=== PATIENT | female | born 1965 | race Two or more races ===

== ENCOUNTER 2017-06-08 15:21 | Emergency (ER) | payer MEDICAID ==
[2017-06-08] MEDS ORDERED: LIDOCAINE 1% INJ (10 MG/ML) 10 ML MDV INJ ONE (15:41)
--- NOTE | 2017-06-08 15:58 | ER Document Report ---
ED Head/Face/Scalp Injury - General Chief Complaint: Head Injury Stated Complaint: HEAD LACERATION Time Seen by Provider: 06/08/17 15:33 Notes: The patient is a 52-year-old female, past medical history seizures, presents after she had two brief seizures today. During her last one, she fell and hit the back of her head. She is also complaining of upper lip pain where she thinks she bit it. Patient is taking her Tegretol and gabapentin as prescribed , but her Tegretol was decreased from 3 times a day to 2 times a day because it was making her too tired. Patient denies blurry vision, neck pain, numbness, tingling, chest pain, shortness of breath, fevers, neck stiffness or ataxia. TRAVEL OUTSIDE OF THE [place] IN LAST 30 DAYS: No - Related Data Allergies/Adverse Reactions: No Known Allergies Allergy (Unverified 07/24/16 14:04) Past Medical History - General Information source: Patient - Social History Smoking Status: Unknown if Ever Smoked Family History: Reviewed & Not Pertinent Neurological Medical History: Reports: Hx Seizures Musculoskeltal Medical History: Reports Hx Arthritis - Immunizations Hx Diphtheria, Pertussis, Tetanus Vaccination: Yes Review of Systems - Review of Systems Notes: REVIEW OF SYSTEMS: CONSTITUTIONAL: -fevers, -chills EENT: -eye pain, -difficulty swallowing, -nasal congestion CARDIOVASCULAR:-chest pain, -syncope. RESPIRATORY: -cough, -SOB GASTROINTESTINAL: -abdominal pain, - nausea, -vomiting, -diarrhea GENITOURINARY: -dysuria, -hematuria MUSCULOSKELETAL: -back pain, -neck pain SKIN: +head laceration HEMATOLOGIC: -easy bruising or bleeding. LYMPHATIC: -swollen, enlarged glands. NEUROLOGICAL: -altered mental status or loss of consciousness, -headache, - neurologic symptoms PSYCHIATRIC: -anxiety, -depression. ALL OTHER SYSTEMS REVIEWED AND NEGATIVE. Physical Exam - Vital signs Vitals: Temp Pulse Resp BP Pulse Ox 97.2 F 80 16 120/74 98 06/08/17 15:41 06/08/17 15:41 06/08/17 15:41 06/08/17 15:41 06/08/17 15:41 - Notes Notes: PHYSICAL EXAMINATION: GENERAL: Well-appearing, well-nourished and in no acute distress. HEAD: 3 cm linear posterior scalp laceration, normocephalic. EYES: Pupils equal round and reactive to light, extraocular movements intact, sclera anicteric, conjunctiva are normal. ENT: mild superficial abrasion of inner upper lip, nares patent, oropharynx clear without exudates. Moist mucous membranes. NECK: Normal range of motion, supple without lymphadenopathy LUNGS: Breath sounds clear to auscultation bilaterally and equal. No wheezes rales or rhonchi. HEART: Regular rate and rhythm without murmurs ABDOMEN: Soft, nontender, normoactive bowel sounds. No guarding, no rebound. No masses appreciated. EXTREMITIES: Normal range of motion, no pitting or edema. No cyanosis. NEUROLOGICAL: Cranial nerves grossly intact. Normal speech, normal gait. Normal sensory and motor exams. PSYCH: Normal mood, normal affect. SKIN: 3 cm linear laceration over left posterior parietal scalp Course - Re-evaluation Re-evalutation: Patient has no acute intracranial bleeds. Her scalp laceration was repaired with myra. Accu-Chek is normal. Instructed patient to follow-up with her primary care physician to discuss management of her seizure medications. Given strict return precautions and she understands. - Vital Signs Vital signs: Temp Pulse Resp BP Pulse Ox 97.2 F 81 16 102/87 H 98 06/08/17 15:41 06/08/17 17:54 06/08/17 17:54 06/08/17 17:54 06/08/17 17:54 - Diagnostic Test Radiology reviewed: Image reviewed, Reports reviewed Radiology results interpreted by me: CT Head: Procedures - Laceration/Wound Repair Posterior Head Wound length (cm): 3 Wound's Depth, Shape: Linear Laceration pre-procedure: Sterile PPE donned Anesthetic type: 1% Lidocaine Volume Anesthetic (mLs): 3 Wound explored: Clean Irrigated w/ Saline (mLs): 1,000 Wound Repaired With: Myra Number of Sutures: 3 Layer Closure?: No Post-procedure NV exam normal: No Complications: No Discharge - Discharge Clinical Impression: Seizure Scalp laceration Qualifiers: Encounter type: initial encounter Qualified Code(s): S01.01XA - Laceration without foreign body of scalp, initial encounter Head injury Qualifiers: Encounter type: initial encounter Qualified Code(s): S09.90XA - Unspecified injury of head, initial encounter Condition: Stable Disposition: HOME, SELF-CARE Additional Instructions: LACERATION CARE: Your laceration has been stapled to keep the skin edges aligned during healing. The time of suture removal depends on the nature and location of your cut. Please follow the care instructions the doctor has outlined for you and return for further care, according to the schedule you've been given. Keep the wound and dressing clean. Unless you were told otherwise, you may shower daily, blotting the wound dry with a clean, unused towel. At other times, If the dressing gets wet or blood soaked, remove it and blot the wound dry, then reapply a new dressing. Unless you were instructed otherwise, dressings should be changed at least daily. If any signs of infection occur (swelling, redness, drainage, increasing tenderness, red streaks, tender lumps in the armpit or groin above the laceration, or fever), see the doctor immediately. SOAP CLEANSING: Gently wash the wound daily using a mild soap (like Ivory, Phisoderm, Neutrogena). Use warm water, rubbing gently until all debris, ooze, and crusting have been washed from the wound. Allow to dry briefly (about 10 minutes) after cleaning. Repeat this cleansing at least three times a day for the first two days and then once or twice a day. TETANUS IMMUNIZATION GIVEN: You have been given an immunization against tetanus. Please record this in your records. In general, a booster is needed only once every 10 years. The tetanus shot protects against tetanus or "lockjaw," which is a complication of certain wound infections (the tetanus shot cannot protect against the actual infection). The immunization site may become warm and red due to local reaction. If this occurs, apply warm compresses and take aspirin or ibuprofen to reduce inflammation and discomfort. Return for evaluation if the reaction becomes severe. FOLLOW-UP CARE: Please return in days for an infection check and dressing change. Your sutures should be removed in 7 days. To facilitate a timely removal of your sutures, you may return to the Emergency Department at [facility]. You do not need to call for an appointment, but the best time to come in for suture removal is early in the morning. If you have been referred to another physician for follow-up care, call that physicians office for an appointment as you were instructed. If you experience a significant change in your laceration, or if you are concerned there may be an infection (swelling, redness, drainage, increasing tenderness, red streaks, tender lumps in the armpit or groin above the laceration, or fever) , return to the Emergency Department immediately re-evaluation. Seizure, Known Epileptic You have had a seizure. Seizures may "break through" in an epileptic due to stress of infection or injury, a change in blood chemistry, or drug and alcohol use. Another common cause is failure to take medication as prescribed. Your doctor has evaluated your situation for the likely cause of this seizure. It is important that you follow his advice concerning any medication changes and follow-up care. Further testing of anti-seizure medication levels in your blood may be necessary. If you have a public transit trolley driver's license, it's important that you DO NOT DRIVE until given permission by your physician. This seizure must be reported to the public transit trolley driver 's license bureau. Call the doctor or return if seizures recur, or if new or unusual symptoms arise -- such as severe headache, confusion, excessive sleepiness, local weakness or numbness, neck stiffness, or fever. Referrals: PAOLA GORE MD [Primary Care Provider] - Follow up as needed
--- NOTE | 2017-06-08 16:59 | RADIOLOGY REPORT (SQ) ---
EXAM DESCRIPTION: CT HEAD WITHOUT COMPLETED DATE/TIME: 06/08/2017 4:23 pm REASON FOR STUDY: head injury COMPARISON: None. TECHNIQUE: Axial images acquired through the brain without intravenous contrast. Images reviewed wi th bone, brain and subdural windows. Images stored on PACS. All CT scanners at this facility use dose modulation, iterative reconstruction, and/or weight based d osing when appropriate to reduce radiation dose to as low as reasonably achievable (ALARA). [facility]: Dose Right [facility]: CareDose [facility]: Dose Right [facility]: Teradose 4D [facility]: Smart Jostle RADIATION DOSE: Up-to-date CT equipment and radiation dose reduction techniques were employed. CTDIv ol: 64.6 mGy. DLP: 1163 mGy-cm. mGy. LIMITATIONS: None. FINDINGS: VENTRICLES: Normal size and contour. CEREBRUM: No masses. No hemorrhage. No midline shift. Normal pratt/white matter differentiation. N o evidence for acute infarction. CEREBELLUM: No masses. No hemorrhage. No alteration of density. No evidence for acute infarction. EXTRAAXIAL SPACES: No fluid collections. No masses. ORBITS AND GLOBE: No intra- or extraconal masses. Normal contour of globe without masses. CALVARIUM: No fracture. PARANASAL SINUSES: No fluid or mucosal thickening. SOFT TISSUES: No mass or hematoma. OTHER: No other significant finding. IMPRESSION: NORMAL BRAIN CT WITHOUT CONTRAST. TECHNICAL DOCUMENTATION: JOB ID: [id number] Quality ID # [id number]: Final reports with documentation of one or more dose reduction techniques (e.g., Au tomated exposure control, adjustment of the mA and/or kV according to patient size, use of iterative reconstruction technique) 2010 [employer]- All Rights Reserved
[2017-06-08] MEDS ORDERED: LIDOCAINE 1% INJ-PF (10 MG/ML) 30 ML SDV ONE (17:17)
[2017-06-08 17:55] VITALS: BP 102/87
== END 2017-06-08 17:57 | disposition home or self-care (01) ==
LOC: ER 15:21
PROC: 0HQ0XZZ Repair Scalp Skin, External Approach (ICD-10-PCS; principal; 2017-06-08)
DX: S01.01XA Laceration without foreign body of scalp, initial encounter (principal); S09.90XA Unspecified injury of head, initial encounter; R56.9 Unspecified convulsions; R51 Headache; Z79.899 Other long term (current) drug therapy
CPT/HCPCS: 70450; 82962; 99284

== ENCOUNTER 2017-11-25 07:24 | Emergency (ER) | payer MEDICAID ==
--- NOTE | 2017-11-25 08:57 | ER Document Report ---
HPI - HPI Patient complains to provider of: left foot pain Onset: Other - monday/monday Quality of pain: Achy Severity: Severe Context: Patient presents to the emergency department with complaints of left foot pain. Patient reports she had a seizure on Monday or Monday or of this past week and hurt her foot somehow. She reports she has been working walking on the foot but it hurts. She reports she has been taking Tylenol for the pain. Denies past medical history of injury to the foot. She does have a past medical history of seizures and is taking medication for this. Denies other symptoms. Associated Symptoms: None Exacerbated by: Walking Relieved by: Denies Similar symptoms previously: No Recently seen / treated by doctor: No - REPRODUCTIVE Reproductive: DENIES: : - MUSCULOSKELETAL Musculoskeletal: REPORTS: Extremity pain - Left ankle Past Medical History - General Information source: Patient - Social History Smoking Status: Former Smoker Chew tobacco use (# tins/day): No Frequency of alcohol use: None Drug Abuse: None Lives with: Family Family History: Reviewed & Not Pertinent Patient has suicidal ideation: No Patient has homicidal ideation: No Neurological Medical History: Reports: Hx Seizures Renal/ Medical History: Denies: Hx Peritoneal Dialysis Musculoskeltal Medical History: Reports Hx Arthritis Surgical Hx: Negative - Immunizations Hx Diphtheria, Pertussis, Tetanus Vaccination: Yes Vertical Provider Document - CONSTITUTIONAL Agree With Documented VS: Yes Exam Limitations: No Limitations General Appearance: WD/WN, No Apparent Distress - nontoxic looking - INFECTION CONTROL TRAVEL OUTSIDE OF THE [place] IN LAST 30 DAYS: No - HEENT HEENT: Atraumatic, Normocephalic - NECK Neck: Supple - RESPIRATORY Respiratory: Breath Sounds Normal, No Respiratory Distress O2 Sat by Pulse Oximetry: 98 - CARDIOVASCULAR Cardiovascular: Regular Rate - MUSCULOSKELETAL/EXTREMETIES Musculoskeletal/Extremeties: MAEW, FROM, Tender - left foot swollen, + pedal pulse, ecchymosis dorsally across distal metatarsal, laterally and left lateral/ posterior distal left lower extremity., Eccymosis - NEURO Level of Consciousness: Awake, Alert, Appropriate Motor/Sensory: No Motor Deficit - DERM Integumentary: Warm, Dry Adult Front & Back Diagram: 1 - ecchymosis 2 - ecchymosis 3 - ecchymosis 4 - swelling Course - Re-evaluation Re-evalutation: 11/25/17 x-rays negative. Patient was instructed on treatment plan to include rest ice elevate Sarwat wrap touches. She verbalized understanding reports pain is decreased since she received Motrin. - Vital Signs Vital signs: Temp Pulse Resp BP Pulse Ox 97.9 F 72 16 122/69 98 11/25/17 07:32 11/25/17 07:32 11/25/17 07:32 11/25/17 07:32 11/25/17 07:32 - Diagnostic Test Radiology reviewed: Image reviewed, Reports reviewed - EXAM DESCRIPTION: FOOT LEFT COMPLETE COMPLETED DATE/TIME: 11/25/2017 9:14 am REASON FOR STUDY: left foot hurt COMPARISON: None. NUMBER OF VIEWS: Three views. TECHNIQUE: AP, lateral and oblique radiographic images acquired of the left foot. LIMITATIONS : None. FINDINGS: MINERALIZATION: Normal. BONES: No acute fracture or dislocation. Heel spur. No worrisome bone lesions. JOINTS: No effusions. SOFT TISSUES: No soft tissue swelling. No foreign body. OTHER: No other significant finding. IMPRESSION: NEGATIVE STUDY OF THE LEFT FOOT. INCIDENTAL HEEL SPUR. NO RADIOGRAPHIC EVIDENCE OF ACUTE INJURY. EXAM DESCRIPTION: TIBIA FIBULA LEFT COMPLETED DATE/TIME: 11/25/2017 9:14 am REASON FOR STUDY: left foot ankle pain COMPARISON: None. NUMBER OF VIEWS: Two views. TECHNIQUE: Two radiographic images acquired of the left tibia and fibula to include the knee and ankle in at least one projection. LIMITATIONS: None. FINDINGS: MINERALIZATION: Normal. BONES: No acute fracture or dislocation. No worrisome bone lesions. SOFT TISSUES: No obvious swelling or foreign body. OTHER: No other significant finding. IMPRESSION: NEGATIVE STUDY OF THE LEFT TIBIA AND FIBULA. NO RADIOGRAPHIC EVIDENCE OF ACUTE INJURY Procedures - Immobilization Left Foot Pre-Proc Neuro Vasc Exam: Normal Immobilizer type: Sarwat wrap, Crutches Performed by: PCT Post-Proc Neuro Vasc Exam: Unchanged from pre-exam Alignment checked and good: Yes Discharge - Discharge Clinical Impression: Left foot pain, Contusion Condition: Stable Disposition: HOME, SELF-CARE Instructions: Sarwat Wrap ([facility]), Contusion ([facility]), Use of Crutches ([facility]), Ibuprofen (General) ([facility]), Ice & Elevation ([facility]) Additional Instructions: *You have been evaluated for a foot injury, contusion *Rest/Ice/Elevate your foot/ankle *Maintain the sarwat wrap for comfort *Use your crutches *Follow up with dr pradhan within one week for recheck *Follow up with orthopedics for continued pain or if not better within one week *Take medication as prescribed *Return to ED for worsening condition, changes, needs Prescriptions: Ibuprofen [Motrin 800 mg Tablet] 800 mg PO TID #15 tablet Forms: Elevated Blood Pressure Referrals: PAOLA GORE MD [Primary Care Provider] - Follow up in 3-5 days
[2017-11-25] MEDS ORDERED: IBUPROFEN 800 MG TABLET PO ONE (09:06)
--- NOTE | 2017-11-25 09:34 | RADIOLOGY REPORT (SQ) ---
EXAM DESCRIPTION: TIBIA FIBULA LEFT COMPLETED DATE/TIME: 11/25/2017 9:14 am REASON FOR STUDY: left foot ankle pain COMPARISON: None. NUMBER OF VIEWS: Two views. TECHNIQUE: Two radiographic images acquired of the left tibia and fibula to include the knee and ank le in at least one projection. LIMITATIONS: None. FINDINGS: MINERALIZATION: Normal. BONES: No acute fracture or dislocation. No worrisome bone lesions. SOFT TISSUES: No obvious swelling or foreign body. OTHER: No other significant finding. IMPRESSION: NEGATIVE STUDY OF THE LEFT TIBIA AND FIBULA. NO RADIOGRAPHIC EVIDENCE OF ACUTE INJURY. TECHNICAL DOCUMENTATION: JOB ID: [id number] [employer]- All Rights Reserved
--- NOTE | 2017-11-25 09:34 | RADIOLOGY REPORT (SQ) ---
EXAM DESCRIPTION: FOOT LEFT COMPLETE COMPLETED DATE/TIME: 11/25/2017 9:14 am REASON FOR STUDY: left foot hurt COMPARISON: None. NUMBER OF VIEWS: Three views. TECHNIQUE: AP, lateral and oblique radiographic images acquired of the left foot. LIMITATIONS: None. FINDINGS: MINERALIZATION: Normal. BONES: No acute fracture or dislocation. Heel spur. No worrisome bone lesions. JOINTS: No effusions. SOFT TISSUES: No soft tissue swelling. No foreign body. OTHER: No other significant finding. IMPRESSION: NEGATIVE STUDY OF THE LEFT FOOT. INCIDENTAL HEEL SPUR. NO RADIOGRAPHIC EVIDENCE OF ACU TE INJURY. TECHNICAL DOCUMENTATION: JOB ID: [id number] [employer]- All Rights Reserved
[2017-11-25 10:19] VITALS: BP 124/63
== END 2017-11-25 10:17 | disposition home or self-care (01) ==
LOC: ER 07:24
DX: S90.32XA Contusion of left foot, initial encounter (principal); M79.672 Pain in left foot; M25.572 Pain in left ankle and joints of left foot; X58.XXXA Exposure to other specified factors, initial encounter; Z87.891 Personal history of nicotine dependence
CPT/HCPCS: 99283; 73630; 73590; J3490

== ENCOUNTER 2018-06-20 08:03 | Day surgery (SDC) | payer MEDICAID ==
[~2018-06-20 08:03] MED LIST: CEFAZOLIN 2 GM/D5W RTU 2 GM/50 ML RTUPB IV PRN
[2018-06-20] MEDS ORDERED: BUPIVACAINE HCL 0.5%-EPI 1:200000 INJ/PF 30 ML VIAL ONE (08:33)
--- NOTE | 2018-06-20 08:33 | RADIOLOGY REPORT (SQ) ---
EXAM DESCRIPTION: CHEST SINGLE VIEW COMPLETED DATE/TIME: 06/20/2018 8:24 am REASON FOR STUDY: surgery COMPARISON: None. EXAM PARAMETERS: NUMBER OF VIEWS: One view. TECHNIQUE: Single frontal radiographic view of the chest acquired. RADIATION DOSE: NA LIMITATIONS: None. FINDINGS: LUNGS AND PLEURA: No opacities, masses or pneumothorax. No pleural effusion. MEDIASTINUM AND HILAR STRUCTURES: No masses. Contour normal. HEART AND VASCULAR STRUCTURES: Heart normal in size. Normal vasculature. BONES: No acute findings. HARDWARE: None in the chest. OTHER: No other significant finding. IMPRESSION: NO ACUTE RADIOGRAPHIC FINDING IN THE CHEST. TECHNICAL DOCUMENTATION: JOB ID: [id number] [employer]- All Rights Reserved Reading location - IP/workstation name: [email or web address]
[2018-06-20 08:51] LABS: HEMATOCRIT 38.6 % (36.0-47.0); HEMOGLOBIN 13.1 g/dL (12.0-15.5); MEAN CORPUSCULAR HEMOGLOBIN 29.9 pg (27.0-33.4); MEAN CORPUSCULAR HGB CONC 33.9 g/dL (32.0-36.0); MEAN CORPUSCULAR VOLUME 88 fl (80-97); PLATELET COUNT 322 10^3/uL (150-450); RED BLOOD COUNT 4.37 10^6/uL (3.72-5.28); RED CELL DISTRIBUTION WIDTH 14.2 % (11.5-14.0); WHITE BLOOD COUNT 8.9 10^3/uL (4.0-10.5)
[2018-06-20 08:55] LABS: APPEARANCE,URINE SLIGHTLY-CLOUDY; BILIRUBIN,URINE NEGATIVE (NEGATIVE); COLOR,URINE YELLOW; GLUCOSE, URINE NEGATIVE (NEGATIVE); KETONES,URINE NEGATIVE (NEGATIVE); LEUKOCYTE ESTERASE,URINE TRACE (NEGATIVE); NITRITE,URINE NEGATIVE (NEGATIVE); PROTEIN,URINE 30 mg/dL (NEGATIVE); URINE SPECIFIC GRAVITY 1.032; UROBILINOGEN,URINE NEGATIVE mg/dL (<2.0)
[2018-06-20 09:10] LABS: ANION GAP 9 (5-19); BLOOD UREA NITROGEN 18 mg/dL (7-20); CALCIUM 9.3 mg/dL (8.4-10.2); CARBON DIOXIDE 22 mmol/L (22-30); CHLORIDE 110 mmol/L (98-107); GLUCOSE 104 mg/dL (75-110); POTASSIUM 4.3 mmol/L (3.6-5.0); SODIUM 141.4 mmol/L (137-145)
[2018-06-20] MEDS ORDERED: ONDANSETRON HCL INJ/PF 4 MG/2 ML SDV ONE (10:38)
[2018-06-20] MEDS ORDERED: PROPOFOL INJ 200 MG/20 ML VIAL IV ONE (10:38)
[2018-06-20] MEDS ORDERED: MIDAZOLAM 2 MG/2 ML INJ ONE (10:38)
[2018-06-20] MEDS ORDERED: HYDROMORPHONE HCL INJ/PF 2 MG/ML AMPULE ONE (10:39)
[2018-06-20] MEDS ORDERED: DIPHENHYDRAMINE HCL 50 MG/ML VIAL IV PRN (11:20)
[2018-06-20] MEDS ORDERED: OXYCODONE-ACETAMINOPHEN 5-325 MG TABLET PO PRN ×2 (11:20)
[2018-06-20] MEDS ORDERED: PROMETHAZINE HCL INJ 25 MG/1 ML VIAL IV PRN ×2 (11:20)
[2018-06-20] MEDS ORDERED: MEPERIDINE HCL/PF INJ 25 MG/1 ML DISP.SYRIN IV PRN (11:20)
[2018-06-20] MEDS ORDERED: FENTANYL CITRATE INJ/PF 100 MCG/2 ML AMPUL IV PRN ×3 (11:20)
[2018-06-20] MEDS ORDERED: MORPHINE SULFATE 10 MG/ML INJ IV PRN (11:20)
--- NOTE | 2018-06-20 11:45 | Discharge Summary ---
Discharge Summary (SDC) - Discharge Final Diagnosis: Left posterior tibial nerve compression Date of Surgery: 06/20/18 Discharge Date: 06/20/18 Condition: Good Prescriptions: Oxycodone HCl 5 mg PO Q6 PRN #40 tablet PRN Reason: Referrals: PAOLA GORE MD [Primary Care Provider] -
--- NOTE | 2018-06-20 11:47 | Operative Report ---
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 Curvilinear incision is made beginning posterior to the medial malleolus extending distally and anteriorly. Sharp dissection was carried incision down to the posterior tibial tunnel. This is open. The posterior tibial and digital tendons are identified and retracted anteriorly. The underlying posterior tibial nerve is identified as is the vascular bundle. This is freed up along the course. The only soft tissue that is clearly evident in the tunnel seems to be fatty tissue. This is excised and sent to pathology. The tourniquet is then deflated. Hemostasis obtained with bipolar cautery. The wound was irrigated with bulb lavage. Is closed using interrupted Vicryl followed by nylon. A sterile compressive dressings applied and the patient's return to the PACU in satisfactory condition.
[2018-06-20] MEDS ORDERED: OXYCODONE HCL IR 5 MG TABLET ONE (12:45)
[2018-06-20] MEDS ORDERED: ONDANSETRON 4 MG TAB.RAPDIS SL PRN (12:53)
[2018-06-20] MEDS ORDERED: OXYCODONE HCL IR 5 MG TABLET PO PRN (12:53)
[2018-06-20] MEDS ORDERED: ONDANSETRON 4 MG TAB.RAPDIS ONE (13:14)
--- NOTE | 2018-06-20 13:59 | EKG REPORT ---
SEVERITY:- NORMAL ECG - SINUS RHYTHM : Confirmed by: Kt Hollingsworth MD 20-Jun-2018 13:58:05
[2018-06-20 14:21] VITALS: BP 122/82
== END 2018-06-20 14:24 | disposition home or self-care (01) ==
LOC: OROUT 08:03
PROVIDERS: ATTEND Orthopaedic Surgery
DX: S84 Injury of nerves at lower leg level (principal); X58.XXXD Exposure to other specified factors, subsequent encounter; M25.572 Pain in left ankle and joints of left foot; G40.909 Epilepsy, unspecified, not intractable, without status epilepticus; F17.210 Nicotine dependence, cigarettes, uncomplicated; M06.9 Rheumatoid arthritis, unspecified; Z79.899 Other long term (current) drug therapy
CPT/HCPCS: 36415; 85027; 81025; 80048; 81001; 88305 ×2; 71045; 93005; 93010; 28035; J2250; J3490 ×2; S0119; J1170; J2405; J2704; J0690; 1470

== ENCOUNTER → 2019-03-12 | Outpatient (CLI) | payer MEDICAID ==
--- NOTE | 2019-03-12 17:15 | WOMENS IMAGING REPORT ---
EXAM DESCRIPTION: 3D SCREENING MAMMO BILAT COMPLETED DATE/TIME: 03/12/2019 10:42 am REASON FOR STUDY: Z12.31 ROUTINE BILATERAL SCREENING Z12.31 ENCNTR SCREEN MAMMOGRAM FOR MALIGNANT N EOPLASM OF CHARLES COMPARISON: 2010 EXAM PARAMETERS: Views: Standard craniocaudal and mediolateral oblique views of each breast recorded using digital acquisition and breast tomosynthesis. Read with the assistance of CAD. .[facility] [employer] Senior Scheduler Version 9.2 LIMITATIONS: None. FINDINGS: No suspicious masses, suspicious calcifications or architectural distortion. No areas of c oncern. IMPRESSION: Assessment: Negative MAMMOGRAM. BIRADS 1. BREAST DENSITY: b. There are scattered areas of fibroglandular density. BIRAD: 1 NEGATIVE RECOMMENDATION: ROUTINE SCREENING COMMENT: The patient has been notified of the results by letter per MQSA requirements. Additional no tification policies are in place for contacting patient with suspicious or incomplete findings. Quality ID #[id number]: The [employer] recommends an annual screening mammogram for women aged 40 years or over. This facility utilizes a reminder system to ensure that all patients receive reminder letters, and/or direct phone calls for appointments. This includes reminders for routine scr eening mammograms, diagnostic mammograms, or other Breast Imaging Interventions when appropriate. Th is patient will be placed in the appropriate reminder system. TECHNICAL DOCUMENTATION: FINDING NUMBER: (1) ASSESSMENT: (1) JOB ID: [id number] [employer]- All Rights Reserved Reading location - IP/workstation name: [email or web address]
== END ==
LOC: WI 10:26
PROVIDERS: ATTEND Family Medicine
DX: Z12.31 Encounter for screening mammogram for malignant neoplasm of breast (principal)
CPT/HCPCS: 77063; 77067

== ENCOUNTER 2019-11-14 14:31 | Emergency (ER) | payer MEDICAID ==
--- NOTE | 2019-11-14 16:14 | ER Document Report ---
ED Medical Screen (RME) - General Chief Complaint: Redness of Eye Stated Complaint: EYE PAIN Time Seen by Provider: 11/14/19 16:12 Primary Care Provider: CARLITOS REDDY MD [Primary Care Provider] - Follow up as needed Mode of Arrival: Ambulatory Information source: Patient Notes: 54-year-old female presents to ED for complaint of right eye pain. She states it is burning and throbbing she woke up with requested yesterday. She states she has had some of these symptoms before but never all of them together and this past where she had come to the hospital. Patient is alert oriented respirations regular nonlabored speaking in full sentences. Patient states she has been rubbing her eye a lot because it is burning and itching. Her conjunctivitis is red I do not see any drainage at this time. I will order visual acuity and eye exam. I have greeted and performed a rapid initial assessment of this patient. A comprehensive ED assessment and evaluation of the patient, analysis of test results and completion of medical decision making process will be conducted by an additional ED providers. TRAVEL OUTSIDE OF THE [place] IN LAST 30 DAYS: No - Related Data Allergies/Adverse Reactions: No Known Allergies Allergy (Verified 11/14/19 16:03) Past Medical History - Social History Chew tobacco use (# tins/day): No Frequency of alcohol use: None Drug Abuse: None - Past Medical History Cardiac Medical History: Denies: Hx Coronary Artery Disease, Hx Heart Attack, Hx Hypertension Pulmonary Medical History: Denies: Hx Asthma, Hx Bronchitis, Hx COPD, Hx Pneumonia Neurological Medical History: Reports: Hx Seizures - since . Denies: Hx Cerebrovascular Accident Renal/ Medical History: Denies: Hx Peritoneal Dialysis Musculoskeltal Medical History: Reports Hx Arthritis - Immunizations Hx Diphtheria, Pertussis, Tetanus Vaccination: No - unsure Physical Exam - Vital signs Vitals: Temp Pulse Resp BP Pulse Ox 97.9 F 85 16 122/74 96 11/14/19 14:38 11/14/19 14:38 11/14/19 14:38 11/14/19 14:38 11/14/19 14:38 Course - Vital Signs Vital signs: Temp Pulse Resp BP Pulse Ox 97.9 F 85 16 122/74 96 11/14/19 14:38 11/14/19 14:38 11/14/19 14:38 11/14/19 14:38 11/14/19 14:38 Doctor's Discharge - Discharge Referrals: CARLITOS REDDY MD [Primary Care Provider] - Follow up as needed
--- NOTE | 2019-11-14 20:09 | ER Document Report ---
ED General - General Mode of Arrival: Ambulatory TRAVEL OUTSIDE OF THE [place] IN LAST 30 DAYS: No <TAJ CARRION JR - Last Filed: 11/14/19 20:09> - HPI Patient complains to provider of: right eye redness/ itching/ irritation Onset: This morning Onset/Duration: Gradual Quality of pain: Burning, Sharp Severity: Moderate Pain Level: 2 Associated symptoms: None Exacerbated by: Denies Relieved by: Denies Similar symptoms previously: No Recently seen / treated by doctor: No <DELANEY CHRISTIE - Last Filed: 11/14/19 21:14> - General Chief Complaint: Redness of Eye Stated Complaint: EYE PAIN Time Seen by Provider: 11/14/19 16:12 Primary Care Provider: CARLITOS REDDY MD [Primary Care Provider] - Follow up as needed - HPI Context: 54 year old non contact lens wearing female with right eye redness and itching and matting and discharge. No fever or chills. No sick contacts. No chronic medical conditions. (DELANEY CHRISTIE) - Related Data Allergies/Adverse Reactions: No Known Allergies Allergy (Verified 11/14/19 16:03) Past Medical History - General Information source: Patient - Social History Smoking Status: Current Every Day Smoker Chew tobacco use (# tins/day): No Frequency of alcohol use: None Drug Abuse: None Family History: Reviewed & Not Pertinent Patient has suicidal ideation: No Patient has homicidal ideation: No - Past Medical History Cardiac Medical History: Denies: Hx Coronary Artery Disease, Hx Heart Attack, Hx Hypertension Pulmonary Medical History: Denies: Hx Asthma, Hx Bronchitis, Hx COPD, Hx Pneumonia Neurological Medical History: Reports: Hx Seizures - since . Denies: Hx Cerebrovascular Accident Renal/ Medical History: Denies: Hx Peritoneal Dialysis Musculoskeletal Medical History: Reports Hx Arthritis Past Surgical History: Reports: Hx Orthopedic Surgery - L FOOT - Immunizations Hx Diphtheria, Pertussis, Tetanus Vaccination: No - unsure <TAJ CARRION JR - Last Filed: 11/14/19 20:09> Review of Systems - Review of Systems Constitutional: No symptoms reported EENT: See HPI, Eye discharge Cardiovascular: No symptoms reported Respiratory: No symptoms reported Gastrointestinal: No symptoms reported Genitourinary: No symptoms reported Female Genitourinary: No symptoms reported Musculoskeletal: No symptoms reported Skin: No symptoms reported Hematologic/Lymphatic: No symptoms reported Neurological/Psychological: No symptoms reported <DELANEY CHRISTIE P - Last Filed: 11/14/19 21:14> Physical Exam - HEENT Visual acuity- Right eye: 20/40-0 Visual acuity- Left eye: 20/25 -0 Visual acuity- Both eyes: 20/20-1 Corrective lenses worn: Yes <TAJ CARRION JR - Last Filed: 11/14/19 20:09> - Vital signs Interpretation: Normal - General General appearance: Appears well, Alert - HEENT Head: Normocephalic, Atraumatic Eyes: Periorbital edema. No: Normal Conjunctiva: Injected, Purulent discharge Cornea: Normal Extraocular movements intact: Yes Eyelashes: Matted Pupils: PERRL - Respiratory Respiratory status: No respiratory distress Chest status: Nontender Breath sounds: Normal Chest palpation: Normal - Cardiovascular Rhythm: Regular Heart sounds: Normal auscultation Murmur: No - Abdominal Inspection: Normal Distension: No distension Bowel sounds: Normal Tenderness: Nontender Organomegaly: No organomegaly - Back Back: Normal, Nontender - Extremities General upper extremity: Normal inspection, Nontender, Normal color, Normal ROM, Normal temperature General lower extremity: Normal inspection, Nontender, Normal color, Normal ROM, Normal temperature, Normal weight bearing. No: Ronda's sign - Neurological Neuro grossly intact: Yes Cognition: Normal Orientation: AAOx4 [place] Coma Scale Eye Opening: Spontaneous [place] Coma Scale Verbal: Oriented [place] Coma Scale Motor: Obeys Commands Annmarie Coma Scale Total: 15 Speech: Normal Sensory: Normal - Psychological Associated symptoms: Normal affect, Normal mood - Skin Skin Temperature: Warm Skin Moisture: Dry Skin Color: Normal <DELANEY CHRISTIE P - Last Filed: 11/14/19 21:14> - Vital signs Vitals: Temp Pulse Resp BP Pulse Ox 97.9 F 85 16 122/74 96 11/14/19 14:38 11/14/19 14:38 11/14/19 14:38 11/14/19 14:38 11/14/19 14:38 Course <DELANEY CHRISTIE P - Last Filed: 11/14/19 21:14> - Re-evaluation Re-evalutation: 11/14/19 21:08 [facility] 54 year old female feels better after tetracaine here. Koenig lamp after floroscein is nl. Conj injection and purulent discharge. (DELANEY CHRISTIE) - Vital Signs Vital signs: Temp Pulse Resp BP Pulse Ox 97.9 F 85 16 122/74 96 11/14/19 14:38 11/14/19 14:38 11/14/19 14:38 11/14/19 14:38 11/14/19 14:38 Procedures - Eye Procedure Right Alcaine Drops Administered: Yes - 1 gtt right eye Fluorescein applied: Right Antibiotic Oinment/Drps Admin: Right eye Slit lamp used: No <DELANEY CHRISTIE - Last Filed: 11/14/19 21:14> - Eye Procedure Right Notes: 11/14/19 21:09 Pt tolerated well without apparent complication. (DELANEY CHRISTIE) Discharge <TAJ CARRION JR - Last Filed: 11/14/19 20:09> <DELANEY CHRISTIE - Last Filed: 11/14/19 21:14> - Discharge Clinical Impression: Conjunctivitis Qualifiers: Conjunctivitis type: acute Acute conjunctivitis type: unspecified Laterality: right Qualified Code(s): H10.31 - Unspecified acute conjunctivitis, right eye Condition: Good Disposition: HOME, SELF-CARE Instructions: Antibiotic Therapy ([facility]), Eyedrop Use ([facility]), Conjunctivitis ([facility]) Additional Instructions: Use drops as directed every three hours while awake. If not mostly better tomorrow see eye doctor tomorrow or Monday. Use drops for 2 days after redness and discharge are gone. Please return here for any problems or any concerns. Prescriptions: Gentamicin Sulfate [Garamycin 0.3% Oph Soln 5 ml] 1 drop OD 5XD 5 Days #1 bottle Referrals: CARLITOS REDDY MD [Primary Care Provider] - Follow up as needed
[2019-11-14] MEDS ORDERED: TETRACAINE HCL 0.5% OPH SOLN 4 ML OD ONE (20:35)
[2019-11-14] MEDS ORDERED: GENTAMICIN SULFATE 0.3% OPH SOLN (5 ML/ER DISP) OD STA (21:10)
[2019-11-14 21:35] VITALS: BP 131/74
== END 2019-11-14 21:44 | disposition home or self-care (01) ==
LOC: ER 14:31
DX: H10.31 Unspecified acute conjunctivitis, right eye (principal); F17.200 Nicotine dependence, unspecified, uncomplicated
CPT/HCPCS: 99282; J3490 ×2

== ENCOUNTER 2020-06-29 11:17 | Emergency (ER) | payer MEDICARE, MEDICAID ==
[2020-06-29 11:59] VITALS: BP 114/69
--- NOTE | 2020-06-29 12:37 | ER Document Report ---
HPI - HPI Time Seen by Provider: 06/29/20 12:25 Context: Patient is a 35-year-old female with a past medical history of seizures who presents today in the emergency department with a chief complaint of a rash to her chest and back. Patient states that the rash is on the right side of her chest on the right side of her back. States the area is hurt. Reports slight pruritus. - ROS Systems Reviewed and Negative: Yes All other systems reviewed and negative - CONSTITUTIONAL Constitutional: DENIES: Fever, Chills - EENT EENT: DENIES: Sore Throat, Ear Pain, Nasal Drainage-Clear, Nasal Drainage- Purulent - NEURO Neurology: DENIES: Headache, Weakness - CARDIOVASCULAR Cardiovascular: DENIES: Chest pain - RESPIRATORY Respiratory: DENIES: Trouble Breathing, Coughing - REPRODUCTIVE Reproductive: DENIES: : - MUSCULOSKELETAL Musculoskeletal: REPORTS: Back Pain - at rash. DENIES: Extremity pain - DERM Skin Color: Normal Skin Problems: Rash - Consistent with shingles, Blister Past Medical History - General Information source: Patient - Social History Smoking Status: Current Every Day Smoker Family History: Reviewed & Not Pertinent - Past Medical History Cardiac Medical History: Denies: Hx Coronary Artery Disease, Hx Heart Attack, Hx Hypertension Pulmonary Medical History: Denies: Hx Asthma, Hx Bronchitis, Hx COPD, Hx Pneumonia Neurological Medical History: Reports: Hx Seizures - since . Denies: Hx Cerebrovascular Accident Renal/ Medical History: Denies: Hx Peritoneal Dialysis Musculoskeletal Medical History: Reports Hx Arthritis Past Surgical History: Reports: Hx Orthopedic Surgery - L FOOT - Immunizations Hx Diphtheria, Pertussis, Tetanus Vaccination: No - unsure Vertical Provider Document - CONSTITUTIONAL Agree With Documented VS: Yes Exam Limitations: No Limitations General Appearance: No Apparent Distress - INFECTION CONTROL TRAVEL OUTSIDE OF THE [place] IN LAST 30 DAYS: No - HEENT HEENT: Atraumatic, Normocephalic, PERRLA - NECK Neck: Normal Inspection - RESPIRATORY Respiratory: Breath Sounds Normal, No Respiratory Distress - CARDIOVASCULAR Cardiovascular: Regular Rate, Regular Rhythm Pulses: Normal: Radial - GI/ABDOMEN Gastrointestinal: Abdomen Soft, Abdomen Non-Tender - MUSCULOSKELETAL/EXTREMETIES Musculoskeletal/Extremeties: FROM - NEURO Level of Consciousness: Awake, Alert, Appropriate Motor/Sensory: No Motor Deficit, No Sensory Deficit - DERM Integumentary: Rash - Along a single dermatome, consistent with shingles. Course - Re-evaluation Re-evalutation: 06/29/20 12:33 Rash is consistent with shingles. We will start the patient on Acyclovir. No cellulitis noted. No evidence of necrotizing fasciitis. Patient is to follow- up with her primary care provider. Follow-up precautions were given. Verbal discharge instructions were given to the patient. They verbalized understanding. They are stable for discharge. - Vital Signs Vital signs: Temp Pulse Resp BP Pulse Ox 98.6 F 58 L 16 114/69 98 06/29/20 11:56 06/29/20 11:56 06/29/20 11:56 06/29/20 11:56 06/29/20 11:56 Discharge - Discharge Clinical Impression: Rash Shingles Qualifiers: Herpes zoster complications: without complications Qualified Code(s): B02.9 - Zoster without complications Condition: Stable Disposition: HOME, SELF-CARE Additional Instructions: Shingles You have shingles. Shingles is caused by the chicken pox virus, The virus has been surviving dormant in a nerve cell since you had chicken pox years ago. The virus has spread down a nerve root to reach the skin. Typically, an band-like area of pain and skin sensitivity develops, then small blisters erupt in the area. Shingles lasts two or three weeks, but sometimes leaves persistent pain. You are contagious -- you can give children chicken pox. But you can't give anyone shingles. Antiviral medicines (such as acyclovir or famciclovir) can help, but the rash usually worsens for about a week. Pain medication is often given if the area hurts. Antihistamines such as Benadryl may be necessary for itching if it does not respond to soda baths and calamine lotion. Sometimes cortisone medicine or nerve-block shots are necessary if pain is severe. If the area remains severely painful as the sores heal, or if you suspect an infection developing in the sores, see your doctor. Continue your gabapentin for pain, but this does not help, ask your primary care provider if you can increase the amount of gabapentin you take. Prescriptions: Acyclovir [Zovirax 800 mg Tablet] 800 mg PO 5XD #50 tab Referrals: PAOLA GORE MD [Primary Care Provider] - Follow up in 3-5 days
== END 2020-06-29 12:40 | disposition home or self-care (01) ==
LOC: ER 11:17
DX: B02.9 Zoster without complications (principal); F17.200 Nicotine dependence, unspecified, uncomplicated
CPT/HCPCS: 99283

== ENCOUNTER → 2020-11-11 | Outpatient (CLI) | payer MEDICARE, MEDICAID | LOC: OD 13:43 | PROVIDERS: ATTEND Internal Medicine | DX: G40.909 Epilepsy, unspecified, not intractable, without status epilepticus (principal) | CPT/HCPCS: 36415; 80156 ==